=== PATIENT | male | born 1985 | race Caucasian/White ===

== ENCOUNTER 2018-08-20 17:38 | Emergency (ER) | payer OTHER ==
[~2018-08-20] VITALS: Ht 180.3 cm; Wt 102.1 kg
[~2018-08-20 17:38] MED LIST: CEPH500 PO; CIPRSO OS; CODACE30 PO; CRUTCH3 USE; HYDACE5 PO; IBUP400 PO; IBUP600 PO; IBUP800 PO; OXYACE5T PO; RXOXYACE PO; SULF10OPSA OD
[2018-08-20] MEDS ORDERED: BENZ100A PO (19:49)
[2018-08-20] MEDS ORDERED: Norco 5-325 Ta1 EACH PO (19:49)
== END 2018-08-20 20:11 | disposition home or self-care (01) ==
LOC: ER 17:38
DX: J11.1 Influenza due to unidentified influenza virus with other respiratory manifestations (principal); F17.200 Nicotine dependence, unspecified, uncomplicated
CPT/HCPCS: 71046; 99283-25

== ENCOUNTER 2020-07-24 13:50 | Emergency (ER) | payer OTHER ==
[~2020-07-24] VITALS: Ht 177.8 cm; Wt 104.3 kg
[~2020-07-24 13:50] MED LIST changes: +BENZ100A PO; +Norco 5-325 Ta1 EACH PO
[2020-07-24 16:13] LABS: BASOPHILS ABSOLUTE AUTO 0.04 K/mm3 (0.00-0.23); BASOPHILS PERCENT AUTO 0 % (0-2); EOSINOPHILS ABSOLUTE AUTO 0.32 K/mm3 (0.00-0.68); EOSINOPHILS PERCENT AUTO 3 % (0-6); Hematocrit 44.5 % (37.0-53.0); Hemoglobin 15.2 g/dL (13.5-17.5); IMMATURE GRAN ABSOLUTE AUTO 0.03 K/mm3 (0.00-0.10); IMMATURE GRAN PERCENT AUTO 0 % (0-1); LYMPHOCYTES ABSOLUTE AUTO 2.35 K/mm3 (0.84-5.20); LYMPHOCYTES PERCENT AUTO 25 % (21-46); MONOCYTES ABSOLUTE AUTO 0.96 K/mm3 (0.16-1.47); MONOCYTES PERCENT AUTO 10 % (4-13); Mean Corpuscular HGB Conc 34.2 g/dL (31.5-36.5); Mean Corpuscular Volume 94 fL (80-100); Mean Platelet Volume 10.1 fL (9.1-12.4); NEUTROPHILS ABSOLUTE AUTO 5.64 K/mm3 (1.96-9.15); NEUTROPHILS PERCENT AUTO 60 % (41-73); Platelet Count 229 K/mm3 (150-400); RDW Coefficient Variation 12.2 % (11.7-14.2); RDW Standard Deviation 42.9 fL (35.1-46.3); Red Blood Cell Count 4.75 M/mm3 (4.30-5.90); White Blood Cell Count 9.34 K/mm3 (4.00-11.30)
[2020-07-24 16:28] LABS: Alanine Aminotransfer (ALT/SGP 58 U/L (12-78); Albumin, Blood 3.7 g/dL (3.4-5.0); Alk Phos 88 U/L (50-136); Anion Gap 8 mmol/L (6-16); Aspartate Aminotrans (AST/SGOT 20 U/L (12-37); Bilirubin, Total 0.6 mg/dL (0.1-1.0); Blood Urea Nitrogen 11 mg/dL (8-24); Bun/Creatinine Ratio 13.3 (12.0-20.0); CO2, Blood 25 mmol/L (21-32); Chloride, Blood 106 mmol/L (98-108); Creatinine, Blood 0.83 mg/dL (0.60-1.20); Globulin, Blood 3.7 g/dL (2.2-4.0); Glomerular Filtration Rate >60 (60-); Glucose, Blood 103 mg/dL (70-99); Sodium, Blood 139 mmol/L (136-145); Total Protein, Blood 7.4 g/dL (6.4-8.2)
[2020-07-24 18:40] LABS: RBC Count, Synovial Fluid 10000 /mm3 (0-0)
[2020-07-24 18:47] LABS: Body Fluid Crystals NEG (NEGATIVE)
[2020-07-24 18:50] LABS: WBC Count, Synovial Fluid 14264 /mm3 (0-180)
[2020-07-24 18:51] LABS: Appearance, Synovial Fluid Hazy (Clear); Color, Synovial Fluid Yellow (None-P Yel)
[2020-07-24] MEDS ORDERED: CEPH500 PO (18:57)
[2020-07-24] MEDS ORDERED: IBUP800 PO (19:05)
[2020-07-24 19:11] LABS: Monocytes/Macrophages, Synovia 14 % (0-65); Neutrophils, Synovial Fluid 86 % (0-24)
== END 2020-07-24 19:21 | disposition home or self-care (01) ==
LOC: ER 13:50
PROVIDERS: Emergency Medicine
DX: M70.52 Other bursitis of knee, left knee (principal); F17.200 Nicotine dependence, unspecified, uncomplicated
CPT/HCPCS: 20611; 73562-LT; 80053; 85025; 85651; 86140; 89051; 89060; 93971; 99284-25; A9270

== ENCOUNTER 2020-08-06 09:08 | Emergency (ER) | payer OTHER ==
[~2020-08-06] VITALS: Ht 177.8 cm; Wt 108.9 kg
== END 2020-08-06 10:57 | disposition home or self-care (01) ==
LOC: ER 09:08
DX: M25.562 Pain in left knee (principal); F17.200 Nicotine dependence, unspecified, uncomplicated; W01.0XXA Fall on same level from slipping, tripping and stumbling without subsequent striking against object, initial encounter
CPT/HCPCS: 73562-LT; 99283-25

== ENCOUNTER 2021-09-11 20:37 | Emergency (ER) | payer OTHER ==
[~2021-09-11] VITALS: Ht 180.3 cm; Wt 106.6 kg
[2021-09-11 21:09] LABS: BASOPHILS ABSOLUTE AUTO 0.09 K/mm3 (0.00-0.23); BASOPHILS PERCENT AUTO 1 % (0-2); EOSINOPHILS ABSOLUTE AUTO 0.28 K/mm3 (0.00-0.68); EOSINOPHILS PERCENT AUTO 4 % (0-6); Hematocrit 48.6 % (37.0-53.0); Hemoglobin 16.5 g/dL (13.5-17.5); IMMATURE GRAN PERCENT AUTO 1 % (0-1); LYMPHOCYTES ABSOLUTE AUTO 3.36 K/mm3 (0.84-5.20); LYMPHOCYTES PERCENT AUTO 43 % (21-46); MONOCYTES ABSOLUTE AUTO 0.74 K/mm3 (0.16-1.47); MONOCYTES PERCENT AUTO 10 % (4-13); Mean Corpuscular Volume 94 fL (80-100); Mean Platelet Volume 9.5 fL (9.1-12.4); NEUTROPHILS ABSOLUTE AUTO 3.17 K/mm3 (1.96-9.15); NEUTROPHILS PERCENT AUTO 41 % (41-73); Platelet Count 266 K/mm3 (150-400); RDW Coefficient Variation 12.2 % (11.7-14.2); RDW Standard Deviation 42.7 fL (35.1-46.3); Red Blood Cell Count 5.16 M/mm3 (4.30-5.90); White Blood Cell Count 7.74 K/mm3 (4.00-11.30)
[2021-09-11 21:26] LABS: Albumin, Blood 3.8 g/dL (3.4-5.0); Albumin/Globulin Ratio 1.1 (0.8-1.8); Bilirubin, Total 0.4 mg/dL (0.1-1.0); Bun/Creatinine Ratio 11.3 (12.0-20.0); Calcium, Blood 9.2 mg/dL (8.5-10.1); Creatinine, Blood 1.59 mg/dL (0.60-1.20); Globulin, Blood 3.4 g/dL (2.2-4.0); Potassium, Blood 4.1 mmol/L (3.5-5.5); Total Protein, Blood 7.2 g/dL (6.4-8.2)
[2021-09-11] MEDS ORDERED: ALLO100 PO (22:25)
== END 2021-09-11 23:08 | disposition home or self-care (01) ==
LOC: ER 20:37
PROVIDERS: Student in an Organized Health Care Education/Training Program
DX: K20.90 Esophagitis, unspecified without bleeding (principal); F17.200 Nicotine dependence, unspecified, uncomplicated; Z79.899 Other long term (current) drug therapy
CPT/HCPCS: 36415; 71045; 80053; 84484; 85025; 93005; 93010; 99285-25